=== PATIENT | male | born 1955 | race Caucasian/White ===

== ENCOUNTER 2018-03-24 07:51 | Day surgery (SDC) | payer OTHER ==
[~2018-03-24] VITALS: Ht 182.9 cm; Wt 107.5 kg
[~2018-03-24 07:51] MED LIST: ALLO100 PO; AMLO5 PO; CITA20 PO; DICL25ER PO; LOSARTAN-HCTZ1 EAC1 PO; TRAM50 PO
--- NOTE | 2018-03-24 08:49 | NUR ---
PT ADMITTED TO [facility]. AGREES WITH PLANNED PROCEDURE. MEDS, ALLERGIES AND HX REVIEWED. TOLERATED BOWEL PREP, STATES CLEAR YELLOW WITH SMALL AMOUNT OF FLECKS.
--- NOTE | 2018-03-24 08:58 | NUR ---
LUNG SOUNDS CLEAR.
--- NOTE | 2018-03-24 09:27 | NUR ---
03/24/18 0927 Val Hernandez PATIENT DETERMINED TO BE ASA APPROPRIATE FOR PROPOFOL SEDATION PRIOR TO START OF PROCEDURE BY DR. LE. 3-LEAD EKG REVIEWED WITH PHYSICIAN PRIOR TO START OF PROCEDURE. PATIENT CONFIRMS NPO STATUS AND AGREES WITH SCHEDULED PROCEDURE. History, Chart, Medications and Allergies reviewed before start of procedure. MONITOR INTACT WITH CONTINUOUS PULSE OXIMETRY AND INTERMITTENT BP. O2 VIA N/C INTACT THROUGHOUT SEDATION/PROCEDURE, 3 L NC.
--- NOTE | 2018-03-24 10:34 | NUR ---
Discharge instructions reviewed with patient. Patient verbalizes understanding. Copy given to patient to take home. Discharged via wheelchair to private car for ride home.
== END 2018-03-24 10:25 | disposition home or self-care (01) ==
LOC: ORSCMMR 07:51 → ORD 09:00 → ORSCMMR 10:25
PROVIDERS: Internal Medicine Gastroenterology
PROC: 0DBN8ZX Excision of Sigmoid Colon, Via Natural or Artificial Opening Endoscopic, Diagnostic (ICD-10-PCS; principal; 2018-03-24 09:00)
DX: K62.5 Hemorrhage of anus and rectum (principal); K57.30 Diverticulosis of large intestine without perforation or abscess without bleeding; I10 Essential (primary) hypertension; F17.210 Nicotine dependence, cigarettes, uncomplicated; Z79.899 Other long term (current) drug therapy
CPT/HCPCS: 88305; J7120

== ENCOUNTER 2021-04-29 11:37 | Inpatient (IN) | payer MEDICARE ==
[~2021-04-29] VITALS: Ht 180.3 cm; Wt 95.8 kg
[2021-04-29 12:15] LABS: Chloride (POC) 87 mmol/L (98-108); Creatinine (POC) 4.7 mg/dL (0.8-1.3); Glucose (ISTAT POC) 102 mg/dL (70-99); Hemoglobin (POC) 14.3 g/dL (13.5-17.5); Potassium (POC) 3.7 mmol/L (3.5-5.5); Sodium (POC) 120 mmol/L (135-148); Total CO2 (POC) 20 mmol/L (21-32)
[2021-04-29 12:46] LABS: Source, Urine Foley catheter
[2021-04-29 12:46] LABS: Albumin, Blood 1.3 g/dL (3.4-5.0); Albumin/Globulin Ratio 0.3 (0.8-1.8); Bilirubin, Total 3.7 mg/dL (0.1-1.0); Bun/Creatinine Ratio 25.2 (12.0-20.0); Calcium, Blood 7.6 mg/dL (8.5-10.1); Creatinine, Blood 3.61 mg/dL (0.60-1.20); Globulin, Blood 3.9 g/dL (2.2-4.0); Potassium, Blood 3.8 mmol/L (3.5-5.5); Total Protein, Blood 5.2 g/dL (6.4-8.2)
[2021-04-29 12:48] LABS: International Normalized Ratio 1.42; Prothrombin Time Results 14.6 Sec (9.7-11.5)
[2021-04-29 13:05] LABS: Appearance, Urine Cloudy (Clear); Blood, Urine 3+ (Neg); Color, Urine Amber (P-Yellow); Glucose Qualitative, Urine Neg (Neg); Ketones, Urine 1+ (Neg); Leukocyte Esterase, Urine 1+ (Neg); Nitrite, Urine Neg (Neg); Protein, Urine 2+ (Neg); Urobilinogen, Urine 2+ (Normal)
[2021-04-29 13:21] LABS: Bilirubin, Urine 1+ (Neg)
[2021-04-29 13:23] LABS: Amorphous Light (0-Heavy); Bacteria Few /hpf; Red Blood Cells, Urine 0-2 /hpf (0-2); Renal Epithelial Rare /hpf (0-Rare); Squamous Epithelial Cells Rare /hpf (Few); White Blood Cells, Urine 0-2 /hpf (0-5)
[2021-04-29 13:46] LABS: Hematocrit 37.6 % (37.0-53.0); Hemoglobin 13.6 g/dL (13.5-17.5); Mean Corpuscular HGB 34.7 pg (26.0-34.0); Mean Corpuscular HGB Conc 36.2 g/dL (31.5-36.5); Mean Corpuscular Volume 96 fL (80-100); Mean Platelet Volume 12.3 fL (9.1-12.4); NRBC ABSOLUTE 0.03 K/mm3 (0.00-0.02); NRBC Auto 0.4 /100 WBC (0.0-0.2); RDW Coefficient Variation 13.9 % (11.7-14.2); RDW Standard Deviation 49.1 fL (35.1-46.3); Red Blood Cell Count 3.92 M/mm3 (4.30-5.90); White Blood Cell Count 6.94 K/mm3 (4.00-11.30)
[2021-04-29 14:06] LABS: Platelet Count 26 K/mm3 (150-400)
[2021-04-29 14:26] LABS: BAND PERCENT MAN 27 % (0-8); BASOPHILS PERCENT MAN 0 % (0-2); EOSINOPHILS ABSOLUTE MAN 0.06 K/mm3 (0.00-0.68); EOSINOPHILS PERCENT MAN 1 % (0-6); LYMPHOCYTES % ATYPICAL MANUAL 3 % (0-0); LYMPHOCYTES ABSOLUTE MAN 0.62 K/mm3 (0.84-5.20); LYMPHOCYTES PERCENT MAN 6 % (21-46); METAMYELOCYTE ABSOLUTE MAN 0.06 K/mm3 (0.00-0.00); METAMYELOCYTE PERCENT MAN 1 % (0-0); MONOCYTES ABSOLUTE MAN 0.41 K/mm3 (0.16-1.47); MONOCYTES PERCENT MAN 6 % (4-13); NEUTROPHILS ABSOLUTE MAN 5.76 K/mm3 (1.96-9.15); SEG NEUTROPHILS PERCENT MAN 56 % (41-73); TOTAL CELLS COUNTED 100
--- NOTE | 2021-04-29 17:17 | NUR ---
ADMIT PT ARRIVED TO ICU 5 AT 1620. PT WAKES TO VOICE, ORIENTED TO PLACE AND SITUATION, CONVERSES APPROPRIATELY BUT REQUIRES STIMULATION TO STAY AWAKE. LUGNS CLEAR, RA WTIH SPO2 IN THE 90S. LEVOPHED AT 15MCG/MIN WITH MAP RIGHT AROUND 70. ABDOMEN SOFT, BOWEL TONES HYPOACTIVE. R IJ DRESSING PEELING OFF UPON ARRIVAL, DRESSING CHANGED. PT HAS EXTENSIVE WOUNDS AND DISCOLORATION TO LOWER EXTREMITIES, L WORSE THAN R. LLE HAS LARGE PATCHES OF SKIN PEELING OFF ON THE RADER AND INNER THIGH. FOOT IS PURPLE. SEVERAL INTACT BLISTERS ON RADER. REDNESS EXTENDS SIGNIFICANTLY FROM THE PURPLE AREAS ON THE LEG, EDGES OUTLINED. L ELBOW IS RED WITH SMALL PURPLE DOTS AROUND IT THE SIZE OF DIMES, EDGES MARKED THERE WELL. INSIDE OF L ELBOW HAS BRUISING FROM BP CUFF. L FLANK HAS BRUISING. PT STATES HE FELL ABOUT A WEEK AGO. PICTURES OF WOUNDS DOCUMENTED IN THE CHART. DR. MENJIVAR AND TACO AT THE BEDSIDE EVALUATING PT AND GETTING CONSENT TO TAKE HIM TO SURGERY. PT'S KIRBY REQUESTED A VIST AND SHE WAS TOLD SHE COULD IF SHE GOT HERE IN TIME, BUT SURGERY WOULD NOT BE DELAYED. UNFORTUNATELY SHE DIDN'T MAKE IT IN TIME. OR CREW TOOK PT TO SURGERY AT 1720.
--- NOTE | 2021-04-29 18:53 | NUR ---
04/29/21 185 Sara Holden PT ENTERED OR WITH DEE CATHETER AND ON SCHEDULED ANTIBIOTICS
[2021-04-29 19:30] LABS: PCO2 Arterial 39.8 mmHg (35-45); PO2 Arterial 89.3 mmHg (80-100)
[2021-04-29 19:32] LABS: pH Blood Arterial 7.29 (7.35-7.45)
[2021-04-29 19:44] LABS: Hematocrit 32.4 % (37.0-53.0); Hemoglobin 11.5 g/dL (13.5-17.5); Mean Corpuscular HGB 34.7 pg (26.0-34.0); Mean Corpuscular HGB Conc 35.5 g/dL (31.5-36.5); Mean Corpuscular Volume 98 fL (80-100); Mean Platelet Volume 11.1 fL (9.1-12.4); NRBC ABSOLUTE 0.04 K/mm3 (0.00-0.02); NRBC Auto 0.3 /100 WBC (0.0-0.2); Platelet Count 62 K/mm3 (150-400); RDW Coefficient Variation 14.1 % (11.7-14.2); RDW Standard Deviation 50.6 fL (35.1-46.3); Red Blood Cell Count 3.31 M/mm3 (4.30-5.90)
[2021-04-29 20:01] LABS: Albumin, Blood 1.6 g/dL (3.4-5.0); Albumin/Globulin Ratio 0.4 (0.8-1.8); Bilirubin, Total 3.4 mg/dL (0.1-1.0); Bun/Creatinine Ratio 26.7 (12.0-20.0); Calcium, Blood 7.2 mg/dL (8.5-10.1); Creatinine, Blood 3.44 mg/dL (0.60-1.20); Globulin, Blood 3.6 g/dL (2.2-4.0); Potassium, Blood 3.8 mmol/L (3.5-5.5); Total Protein, Blood 5.2 g/dL (6.4-8.2)
[2021-04-29 20:09] LABS: BAND PERCENT MAN 19 % (0-8); BASOPHILS PERCENT MAN 0 % (0-2); BLASTS PERCENT MAN 1 % (0-0); EOSINOPHILS PERCENT MAN 0 % (0-6); LYMPHOCYTES % ATYPICAL MANUAL 1 % (0-0); LYMPHOCYTES ABSOLUTE MAN 1.25 K/mm3 (0.84-5.20); LYMPHOCYTES PERCENT MAN 7 % (21-46); METAMYELOCYTE ABSOLUTE MAN 0.78 K/mm3 (0.00-0.00); METAMYELOCYTE PERCENT MAN 5 % (0-0); MONOCYTES ABSOLUTE MAN 0.15 K/mm3 (0.16-1.47); MONOCYTES PERCENT MAN 1 % (4-13); MYELOCYTE ABSOLUTE MAN 0.15 K/mm3 (0.00-0.00); MYELOCYTE PERCENT MAN 1 % (0-0); NEUTROPHILS ABSOLUTE MAN 12.87 K/mm3 (1.96-9.15); PROMYELOCYTE ABSOLUTE MAN 0.31 K/mm3 (0.00-0.00); PROMYELOCYTE PERCENT MAN 2 % (0-0); SEG NEUTROPHILS PERCENT MAN 63 % (41-73); TOTAL CELLS COUNTED 100
[2021-04-29 21:07] LABS: Source, Urine Foley catheter
[2021-04-29 21:11] LABS: Influenza A, PCR NEGATIVE (NEGATIVE); Influenza B, PCR NEGATIVE (NEGATIVE); Resp Syncytial Virus, PCR NEGATIVE (NEGATIVE); SARS-Cov-2 (COVID-19) PCR, MMC NEGATIVE (NEGATIVE)
[2021-04-29 21:11] LABS: Blood, Urine 5+ (Neg); Glucose Qualitative, Urine Neg (Neg); Ketones, Urine 1+ (Neg); Leukocyte Esterase, Urine 2+ (Neg); Nitrite, Urine Neg (Neg); Protein, Urine 3+ (Neg); Specific Gravity, Urine 1.025 (1.003-1.022); Urobilinogen, Urine 2+ (Normal)
[2021-04-29 21:12] LABS: Bilirubin, Urine 2+ (Neg)
[2021-04-29 21:13] LABS: Appearance, Urine Cloudy (Clear); Color, Urine Amber (P-Yellow)
--- NOTE | 2021-04-29 21:13 | NUR ---
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 PT ON THE VENT; SYSTOLIC PRESSURES IN THE 60'S, LEVOPHED BAG EMPTY. NEW BAG HUNG AND INTIATED AT 30MCG/MIN. LR BOLUSED IN.STARTED VASOPRESSIN AT 0.04 UNITS/MIN. VENT SETTINGS: AC/VC 16, VT 450, PEEP 5, FIO2 100%, RR 20, SPO2 98%. PT UNRESPONSIVE. PER ANESTHESIOLOGIST PT RECEIVED FENTANYL AND PARALYTIC PRIOR TO TRANSPORTING TO ICU. ONCE BP'S STARTED INCREASED TO SYSTOLIC'S 130'S PROPOFOL WAS STARTED AT 20MCG/KG/MIN AND LEVOPHED TURNED DOWN TO 25 MCG/MIN. PT REMAINS UNRESPONSIVE WITH NO COUGH, GAG, OR SWALLOW REFLEX. NO MOVEMENT OF EYES; ABSENT VESTIBULO-OCULAR REFLEX, WELL CORNEAL REFLEX. NO GRIMACING OR WITHDRAWAL FROM NOXIOUS/PAINFUL STIMULI. PT HAS A CENTRAL LINE TO RIGHT IJ. LR CURRENTLY INFUSING AT 150ML/HR, LEVOPHED AT 20MCG/SCOTT, VASOPRESSIN AT 0.04 UNITS/MIN, AND NS TKO WITH MERREM INFUSING. 20G PERIPHERAL IV'S TO LEFT WRIST X2. OG HOOKED TO LOW INTERMITTENT SUCTION WITH BROWN OUTPUT. WOUND VAC'S IN PLACE TO BILATERAL AKA SITES AT 120 MMHG PRESSURE; SANGUINEOUS DRAINAGE NOTED TO BOTH CANISTERS. BILATERAL FEMORAL PULSES OBTAINED VIA DOPPLER. BILATERAL RADIAL PULSES ARE VERY FAINT, BUT PALPABLE. PT ARRIVED FROM OR IN AFIB WITH A RATE 80-120'S; HOWEVER, HE IS CURRENTLY IN NSR WITH HR 70'S. BP'S STABLE, SEE FLOWSHEET. SEE SHIFT SUMMARY FOR FURTHER DETAILS. DR. GAR WORKING ON COBRA TRANSFER SECONDARY TO PT NEEDING MULTIPLE WASH OUT SURGERIES AND POSSIBLY PLASTIC SURGERY PER DR. MENJIVAR. GRANDDAUGHTER, VIN, WAS ALLOWED BACK TO SEE PATIENT. SHE WAS UPDATED ON STATUS OF PATIENT WITH NO FURTHER QUESTIONS; STATED SHE WOULD BE IN EVERY DAY TO SEE PATIENT. SHE WAS INFORMED OF NO VISITOR POLICY CURRENTLY AND WAS ADDED TO THE SHEET TO BE ABLE TO GIVE INFORMATION OVER THE PHONE. SHE WAS ALSO GIVEN THE UNITS DIRECT NUMBER TO CALL AND GET UPDATES.
[2021-04-29 21:30] LABS: Amorphous Mod (0-Heavy); Bacteria Mod /hpf; Mucus Light (0-Heavy); Red Blood Cells, Urine TNTC /hpf (0-2); Squamous Epithelial Cells Few /hpf (Few); White Blood Cells, Urine TNTC /hpf (0-5)
--- NOTE | 2021-04-29 22:23 | NUR ---
COBRA TRANSFER PT HAS BEEN ACCEPTED FOR TRANSFER TO [facility] DAUGHTER, DELIO, IS AT BEDSIDE AT THIS TIME. UPDATE GIVEN WITH NO FURTHER QUESTIONS.
--- NOTE | 2021-04-29 23:46 | NUR ---
REASSESSMENT PT NOTED TO BE SPONTANEOUSLY MOVING BUE'S AND HEAD. UPON CALLING PT'S NAME, HE OPENED HIS EYES AND WAS ABLE TO SQUEEZE HAND UPON COMMAND. NODDED HEAD "YES" TO PAIN. MEDICATED WITH 50MCG OF FENTANYL PER ORDERS.
--- NOTE | 2021-04-30 00:59 | NUR ---
TRANSPORTED TO [facility] PT LEFT AT 0050 BY REACH AND EMS CREW. CALLED REPORT TO A[facility] AT [facility]. PT LEFT WITH BELONGINGS INCLUDING WALLET AND CELL PHONE.
== END 2021-04-30 00:50 | disposition short-term general hospital (02) | DRG 853 ==
LOC: ER 11:37 → ICUE 15:18 → ICUW 15:18 → ICUE 15:22
PROVIDERS: Anesthesiology; Emergency Medicine; Hospitalist; ADMIT Internal Medicine
PROC: 3E043XZ Introduction of Vasopressor into Central Vein, Percutaneous Approach (ICD-10-PCS; 2021-04-29)
PROC: 02HV33Z Insertion of Infusion Device into Superior Vena Cava, Percutaneous Approach (ICD-10-PCS; 2021-04-29)
PROC: 0Y6D0Z1 Detachment at Left Upper Leg, High, Open Approach (ICD-10-PCS; principal; 2021-04-30)
PROC: 0Y6C0Z1 Detachment at Right Upper Leg, High, Open Approach (ICD-10-PCS; 2021-04-30)
DX: A41.9 Sepsis, unspecified organism (principal); R65.21 Severe sepsis with septic shock; M72.6 Necrotizing fasciitis; J96.00 Acute respiratory failure, unspecified whether with hypoxia or hypercapnia; N17.9 Acute kidney failure, unspecified; E87.2 Acidosis; D69.6 Thrombocytopenia, unspecified; Z20.822 Contact with and (suspected) exposure to COVID-19; L03.031 Cellulitis of right toe; F10.20 Alcohol dependence, uncomplicated; F17.210 Nicotine dependence, cigarettes, uncomplicated; I10 Essential (primary) hypertension; Z98.890 Other specified postprocedural states; Z79.899 Other long term (current) drug therapy
CPT/HCPCS: 0241U; 36415; 36430; 36556; 36600; 51702; 51703; 71045; 73700; 74176; 80047; 80053; 81001; 82140; 82803; 83605; 84484; 85014; 85025; 85610; 86850; 86900; 86901; 87070; 87077; 87086; 87147; 87186; 87205; 93005; 93010; 94003; 96365-59; 96366-59; 96367-59; 96368; 96376-59; 99285-25; C1751; G0480; J0692; J0696; J2185; J2370; J2704; J3010; J3370; J7030; J7050; J7060; J7120; P9035; P9059